=== PATIENT | female | born 1990 | race African-American/Black ===

== ENCOUNTER 2016-10-05 07:22 | Emergency (ER) | payer MEDICAID ==
[~2016-10-05] VITALS: Ht 160 cm; Wt 59.0 kg
[~2016-10-05 07:22] MED LIST: PREN-96 PO
[2016-10-05 08:02] VITALS: BP 110/65
[2016-10-05] MEDS ORDERED: KETOROLAC TROMETH 60MG/2ML VIAL IM ONE (08:15)
== END 2016-10-05 08:57 | disposition home or self-care (01) ==
LOC: ER 07:22
DX: S22.32XA Fracture of one rib, left side, initial encounter for closed fracture (principal); F17.210 Nicotine dependence, cigarettes, uncomplicated; W19.XXXA Unspecified fall, initial encounter; Y93.89 Activity, other specified; Y99.8 Other external cause status; Y92.89 Other specified places as the place of occurrence of the external cause
CPT/HCPCS: 71101; 96372; 99284; J1885